=== PATIENT | female | born 1990 | race Caucasian/White ===

== ENCOUNTER → 2021-08-10 17:12 | Observation (INO) ==
[2021-08-10 16:25] LABS: Bacteria,Urine Few per hpf (None-Few); Bilirubin,Urine Negative (Negative); Blood,Urine Negative (Negative); Clarity,Urine Clear (Clear); Color,Urine Colorless (Yellow); Glucose,Urine (UA) Normal (Normal); Ketones,Urine Negative (Negative); Leukocyte Esterase,Urine Large (Negative); Nitrite,Urine Negative (Negative); PH,Urine 7.5 pH Units (5.0-8.0); Protein,Urine Negative (Neg-Trace); RBC,Urine 0-3 per hpf (0-3); Specific Gravity,Urine 1.005 (1.010-1.025); Squamous Epithelial Cell,Urine Few per hpf (None-Few); Urobilinogen,Urine Normal (Normal)
== END | disposition home or self-care (01) ==
LOC: 1NENULAB
PROVIDERS: ADMIT Obstetrics & Gynecology; ATTEND Obstetrics & Gynecology

== ENCOUNTER → 2021-10-01 22:47 | Observation (INO) ==
[~2021-10-01 22:47] MED LIST: *HR* Promethazine 25 MG/ML VIAL IM ONE; Famotidine 20 MG/2 ML VIAL IVP ONE; Ringers Solution, Lactated 1,000 ML IVC SCH; Ringers Solution, Lactated 1,000 ML ONE
== END | disposition home or self-care (01) ==
LOC: 1NENULAB
PROVIDERS: ADMIT Advanced Practice Midwife; ATTEND Advanced Practice Midwife

== ENCOUNTER 2021-10-03 01:57 | Observation (INO) ==
[2021-10-03] MEDS ORDERED: Ringers Solution, Lactated 1,000 ML IVC ONE (02:16)
[2021-10-03] MEDS ORDERED: Ringers Solution, Lactated 1,000 ML ONE (02:18)
== END 2021-10-03 04:00 | disposition home or self-care (01) ==
LOC: 1NENULAB
PROVIDERS: ADMIT Obstetrics & Gynecology; ATTEND Obstetrics & Gynecology

== ENCOUNTER 2021-10-03 21:01 | Inpatient (IN) ==
[2021-10-03] MEDS: Ondansetron 4 MG/2 ML VIAL IVP PRN ×2 (13:58→22:16)
[2021-10-03 14:35] LABS: Basophils % 0.3 %; Hematocrit 41.1 % (35.3-44.9); Hemoglobin 12.2 g/dL (11.5-15.4); Immature Granulocytes % 0.4 % (0-4); Lymphocytes % 8.4 %; Mean Corpuscular HGB Conc 29.7 g/dL (31.6-35.5); Mean Corpuscular Hemoglobin 25.2 pg (28.0-33.3); Mean Corpuscular Volume 84.7 fL (83.0-100.0); Mean Platelet Volume 11.8 fL (9.4-12.4); Monocytes # 0.5 K/mcL (0.0-1.3); Monocytes % 4.1 %; Neutrophils # 10.3 K/mcL (1.6-8.9); Platelet Count 218 K/mcL (140-400); Red Blood Count 4.85 M/mcL (3.82-4.97); Red Cell Distribution Width 15.3 % (11.5-14.5); Segmented Neutrophils % 86.8 %; White Blood Count 11.8 K/mcL (4.3-11.1)
[2021-10-03 15:36] LABS: Bilirubin,Urine Negative (Negative); Blood,Urine Negative (Negative); Clarity,Urine Clear (Clear); Color,Urine Yellow (Yellow); Glucose,Urine (UA) Normal (Normal); Ketones,Urine >150 mg/dL (Negative); Leukocyte Esterase,Urine Negative (Negative); Mucus,Urine Few per lpf (None-Few); Nitrite,Urine Negative (Negative); PH,Urine 5.5 pH Units (5.0-8.0); Protein,Urine 50 mg/dL (Neg-Trace); RBC,Urine 0-3 per hpf (0-3); Specific Gravity,Urine 1.027 (1.010-1.025); Squamous Epithelial Cell,Urine Few per hpf (None-Few); Urobilinogen,Urine Normal (Normal); WBC,Urine 0-3 per hpf (0-3)
[2021-10-03 16:15] LABS: Alanine Aminotransferase 10 Units/L (7-52); Albumin/Globulin Ratio 1.1 (1.1-2.2); Alkaline Phosphatase 136 Units/L (34-104); Amylase 171 Units/L (29-103); Aspartate Amino Transferase 20 Units/L (13-39); BUN/Creatinine Ratio 13 (6-26); Bilirubin,Direct 0.2 mg/dL (0.0-0.2); Bilirubin,Indirect 0.5 mg/dL (0.0-1.0); Bilirubin,Total 0.7 mg/dL (0.3-1.0); Blood Urea Nitrogen 13 mg/dL (6-20); Calcium 9.5 mg/dL (8.6-10.3); Carbon Dioxide 13 mEq/L (23-29); Chloride 104 mEq/L (98-107); Globulin 3.7 g/dL (2.4-3.5); Glucose 74 mg/dL (70-105); Lipase 59 Units/L (11-82); Osmolality,Calculated 283 (280-300); Potassium 4.1 mEq/L (3.5-5.1); Sodium 137 mEq/L (136-145); Total Protein 7.7 g/dL (6.4-8.9); eGFR For African Americans > 60 (> 60); eGFR For Non-African Americans > 60 (> 60)
[2021-10-03] MEDS: Ringers Solution, Lactated 1,000 ML IVC SCH ×2 (16:25→23:52)
[2021-10-03] MEDS: Prochlorperazine 10 MG/2 ML VIAL IVP PRN (19:26)
[~2021-10-03 21:01] MED LIST changes: +*HR* Nalbuphine 10 MG/ML AMPUL IV PRN; -*HR* Promethazine 25 MG/ML VIAL IM ONE; +EPHEDrine 50 MG/ML VIAL IVP PRN; +Epidural Premix (fent/bupiv) 110 ML EP SCH; +Famotidine 20 MG/2 ML VIAL IVP PRN; +Metoclopramide 10 MG/2 ML VIAL IVP PRN; +Naloxone 0.4 MG/ML INJ IVP PRN; +Ringers Solution, Lactated 1,000 ML IVC ONE; -Ringers Solution, Lactated 1,000 ML IVC SCH; -Ringers Solution, Lactated 1,000 ML ONE; +Scopolamine Patch 1.5 MG PATCH.TD72 TD ONE; +hydrOXYzine pamoate 25 MG CAPSULE PO PRN
[2021-10-03] MEDS ORDERED: Oxytocin 20 units/ LR 1000 mL 20 UNIT/1,000 ML BAG IVC SCH (21:30)
[2021-10-03 21:36] LABS: Amphetamine Screen,Urine Negative ng/mL (Cutoff=1000); Barbiturate Screen,Urine Negative ng/mL (Cutoff=200); Benzodiazepines Screen,Urine Negative ng/mL (Cutoff=200); Cannabinoid Screen,Urine Negative ng/mL (Cutoff = 50); Cocaine Screen,Urine Negative ng/mL (Cutoff= 300); Opiate Screen,Urine Negative ng/mL (Cutoff=300); Phencyclidine Screen,Urine Negative ng/mL (Cutoff=25)
[2021-10-04] MEDS: Prochlorperazine 10 MG/2 ML VIAL IVP PRN (04:49)
[2021-10-04] MEDS ORDERED: Famotidine 20 MG/2 ML VIAL IVP SCH (06:00)
[2021-10-04] MEDS: Ondansetron 4 MG/2 ML VIAL IVP PRN (07:12)
[2021-10-04] MEDS ORDERED: Lidocaine 1% 20 ML MDV ONE (09:16)
[2021-10-04] MEDS ORDERED: Ondansetron ODT 4 MG TAB.RAPDIS SL PRN (12:16)
[2021-10-04] MEDS ORDERED: Rho Immune Globulin 1,500 UNIT SYRINGE IM PRN (12:16)
[2021-10-04] MEDS ORDERED: Benzocaine/Menthol 56 GM AEROSOL SPRAY TP PRN (12:16)
[2021-10-04] MEDS ORDERED: Oxytocin 20 units/ LR 1000 mL 20 UNIT/1,000 ML BAG IVC SCH (12:16)
[2021-10-04] MEDS ORDERED: Lanolin 7 G OINT...G. TP PRN (12:16)
[2021-10-04] MEDS ORDERED: Lidocaine 1% 20 ML MDV INFILT ONE (12:30)
[2021-10-04] MEDS: Acetaminophen 325 MG TABLET PO SCH ×2 (12:31→19:54)
[2021-10-04] MEDS: Ibuprofen 600 MG TABLET PO SCH ×2 (12:32→19:53)
[2021-10-04] MEDS ORDERED: Famotidine 20 MG TABLET PO SCH (21:00)
[2021-10-05 04:05] VITALS: O2SAT 98
[2021-10-05 08:46] VITALS: BP 118/80; PULSE 56; TEMP 98
[2021-10-05] MEDS: Ibuprofen 600 MG TABLET PO SCH (08:49)
[2021-10-05] MEDS ORDERED: Prenatal Vit/FA 1 EACH TABLET PO SCH (09:00)
== END 2021-10-05 11:07 | disposition home or self-care (01) | DRG 807 ==
LOC: 1NENULAB → 1NENUOBS 10-04 12:14
PROVIDERS: ADMIT Obstetrics & Gynecology; ATTEND Obstetrics & Gynecology